=== PATIENT | male | born 1960 | race Two or more races ===

== ENCOUNTER 2020-11-09 05:17 | Inpatient (IN) | payer OTHER ==
[~2020-11-09] VITALS: Ht 182.9 cm; Wt 83.5 kg
[2020-11-09] VITALS (14 sets, daily range): BP systolic 115–134; BP diastolic 68–84
[~2020-11-09 05:17] MED LIST: ATORVASTATIN CA10 MG ORAL; LEXAPRO10 MG ORAL; PROTONIX40 MG ORAL; VITAMIN D325 MC1 PO; ceFAZolin sod 2 GM in NS 55 ML IVPB ONE
[2020-11-09] MEDS ORDERED: Midazolam 2mg/2ml Inj ONE (06:26)
[2020-11-09] MEDS ORDERED: fentaNYL 100 mcg/2 mL IV ONE (06:26)
[2020-11-09] MEDS ORDERED: Lidocaine 1% MPF 10mg/ml 5ml ONE (06:27)
[2020-11-09] MEDS ORDERED: Vancomycin 1gm vial IVPB ONE (06:37)
[2020-11-09] MEDS ORDERED: Thrombin 5000 units TOPIC ONE (06:38)
[2020-11-09] MEDS ORDERED: Rocuronium Bromide 50mg/5ml Inj IV ONE (06:38)
[2020-11-09] MEDS ORDERED: Ropivacaine 5mg/ml Vial 30ml INJ ONE (06:38)
[2020-11-09] MEDS ORDERED: Succinylcholine 20mg/ml 10ml vial ONE (06:38)
[2020-11-09] MEDS ORDERED: Gelfoam Size TOPIC ONE (06:38)
[2020-11-09] MEDS ORDERED: Bacitracin 50000 Units Vial ONE (06:39)
--- NOTE | 2020-11-09 06:50 | Anethesia Preoperative Eval ---
Anesthesia Pre-op PMH/ROS General Date of Evaluation: Nov 09, 2020 Time of Evaluation: 06:46 Anesthesiologist: Jimenez ASA Score: ASA 2 Mallampati Score Class I : Soft palate, uvula, fauces, pillars visible Class II: Soft palate, uvula, fauces visible Class III: Soft palate, base of uvula visible Class IV: Only hard plate visible Mallampati Classification: Class II Surgeon: Avinash Diagnosis: Lumbar radiculopathy Surgical Procedure: Lumbar laminotomy Anesthesia History: none Family History: no anesthesia problems Allergies: Coded Allergies: No Known Allergies (Unverified , 11/06/20) Medications: see eMAR Patient NPO?: Yes Past Medical History Cardiovascular: Reports: HTN - brderline; Denies: CAD, [place], valve dz, arrhythmia, other Pulmonary: Denies: asthma, COPD, STIVEN, other Gastrointestinal/Genitourinary: Reports: GERD, other - gastric ulcer; Denies: CRI, ESRD Neurologic/Psychiatric: Reports: depression/anxiety, other - chroniuc pain; Denies: dementia, CVA, TIA Endocrine: Denies: DM, hypothyroidism, steroids, other HEENT: Denies: cataract (L), cataract (R), glaucoma, TAZLINA (L), TAZLINA (R), other Hematology/Immune: Denies: anemia, DVT, bleeding disorder, other Musculoskeletal/Integumentary: Reports: OA; Denies: RA, DJD, DDD, edema, other PMH Narrative: as above PSxH Narrative: see H&P Anesthesia Pre-op Phys. Exam Physician Exam Last Vital Signs Date Time Temp Pulse Resp B/P (MAP) Pulse Ox O2 Delivery O2 Flow Rate FiO2 11/09/20 06:02 Room Air 11/09/20 05:49 98.7 75 18 129/83 (98) 98 Constitutional: NAD Neurologic: CN 2-12 intact Cardiovascular: RRR, no M/R/G Respiratory: CTA Gastrointestinal: S/NT/ND Airway Exam Mallampati Score: Class II MO: full Neck: flexible ROM: limited Teeth: missing Dentures: no upper, no lower Anesthesia Pre-op A/P Labs see chart Studies Pre-op Studies: EKG - SR Risk Assessment & Plan Assessment: ASA 2 Plan: GA with ETT, prone position neuromonitoring Status Change Before Surgery: No Pre-Antibiotics Drug: Ancef 2gr. Given Within 1 Hr of Incision: Yes Time Given: 07:32 Figueroa Gaona MD Nov 09, 2020 06:50
[2020-11-09] MEDS ORDERED: propofoL 1,000mg/100ml IV ONE ×2 (07:00→08:00)
--- NOTE | 2020-11-09 07:16 | Pre-Procedure Note/Attestation ---
Pre-Procedure Note/Attestation Complete Prior to Procedure Planned Procedure: left Procedure Narrative: Left Microdiscectomy Hemilaminotomy Foraminotomy Decompression at L45 and L5S1 Indications for Procedure Pre-Operative Diagnosis: herniation L45 L5s1 Attestation I attest that I discussed the nature of the procedure; its benefits; risks and complications; and alternatives (and the risks and benefits of such alternatives), prior to the procedure, with the patient (or the patient's legal representative phlebotomy services). I attest that, if there was a reasonable possibility of needing a blood transfusion, the patient (or the patient's legal representative phlebotomy services) was given the [facility] standardized written summary, pursuant to the Hemal Trish Blood Safety Act ([place] Health and Safety Code # 1645, as amended). I attest that I re-evaluated the patient just prior to the surgery and that there has been no change in the patient's H&P, except as documented below: Charles Da Silva MD Nov 09, 2020 07:16
--- NOTE | 2020-11-09 07:17 | Brief Operative Note ---
Immediate Post Operative Note Operative Note Chief Complaint: leg pain and back pains Pre-op Diagnosis: herniation L45 L5s1 Procedure: Left Microdiscectomy Hemilaminotomy Foraminotomy Decompression at L45 and L5S1 Post-op Diagnosis: same as pre-op Findings: consistent w/pre-op dx studies Surgeon: Avinash Computer Builder: Aleisha Anesthesiologist: MILEY Anesthesia: general Specimen: none Complications: none Condition: stable Fluids: ivf Estimated Blood Loss: minimal Drains: none Implant(s) used?: No Charles Da Silva MD Nov 09, 2020 07:17
[2020-11-09] MEDS ORDERED: HYDROcodone/Acetamin 7.5/325 tab ORAL PRN ×2 (07:30)
[2020-11-09] MEDS ORDERED: Morphine Sulfate 2mg/ml Inj(IV/IM USE ONLY) IV PRN (07:30)
[2020-11-09] MEDS ORDERED: HYDROmorphone 1mg/ml Carpuject IVP PRN (07:30)
[2020-11-09] MEDS ORDERED: Morphine Sulfate 4mg/ml Inj (IV USE ONLY) IV PRN (07:30)
[2020-11-09] MEDS ORDERED: Metoclopramide 10mg/2ml Inj IVP PRN (07:30)
[2020-11-09] MEDS ORDERED: Naloxone 0.4mg/ml Inj IVP PRN (07:30)
[2020-11-09] MEDS ORDERED: Chloraseptic Spray 20mL Bottle ORAL PRN (07:30)
[2020-11-09] MEDS ORDERED: HYDROcodone/Acetamin 5/325 tab ORAL PRN (07:30)
[2020-11-09] MEDS ORDERED: Milk of Magnesia 30ml Ud ORAL PRN (07:30)
[2020-11-09] MEDS ORDERED: NS Irrig 1000ml IRRIG ONE ×2 (07:32→08:04)
[2020-11-09] MEDS ORDERED: Sterile Water Irrig 1000ml IRRIG ONE (08:00)
[2020-11-09] MEDS ORDERED: NS Irrig 1000ml ONE (08:00)
[2020-11-09] MEDS ORDERED: LR 1000ml ONE (08:00)
[2020-11-09] MEDS ORDERED: Morphine Sulfate 10mg/ml Inj ONE (08:09)
[2020-11-09] MEDS ORDERED: Glycopyrrolate 0.2mg/ml 1ml Vial ONE (08:10)
[2020-11-09] MEDS ORDERED: Sodium Chloride 10ml vial INJ ONE ×2 (08:10→08:22)
[2020-11-09] MEDS ORDERED: Neostigmine 1mg/ml 10ml Inj ONE (08:10)
[2020-11-09] MEDS ORDERED: Acetaminophen (Non formulary) 100 ML IV ONE (08:15)
--- NOTE | 2020-11-09 09:21 | Immediate Post-Op Evaluation ---
Immediate Post-Op Evalulation Immediate Post-Op Evalulation Procedure: L4-L5 L5-S1 laminotomy with discectomy and decompression Date of Evaluation: Nov 09, 2020 Time of Evaluation: 09:20 IV Fluids: 1100 Blood Products: none Estimated Blood Loss: 100 Urinary Output: 200 Blood Pressure Systolic: 109 Blood Pressure Diastolic: 72 Pulse Rate: 86 Respiratory Rate: 22 O2 Sat by Pulse Oximetry: 99 Temperature (Fahrenheit): 97.6 Pain Score (1-10): 1 Nausea: No Vomiting: No Complications none Patient Status: reacts, patent, extubated, none Hydration Status: adequate Figueroa Gaona MD Nov 09, 2020 09:21
--- NOTE | 2020-11-09 09:51 | Diagnostic Imaging Report ---
XRAY L Spine 1V CLINICAL HISTORY: Back pain. COMPARISON: None FINDINGS: Fluoroscopy independent procedure performed for intraoperative localization. 3.9 seconds of fluoroscopy time utilized by the ordering physician. Total cumulative dose is 2.16 mGy and 0.36445 Gy.cm2. Total of 2 spot images are obtained . IMPRESSION: FLUOROSCOPY GUIDED PROCEDURE.
[2020-11-09] MEDS ORDERED: LR 1000ml 1,000 ML IVLG SCH (10:00)
[2020-11-09] MEDS ORDERED: Hydromorphone 0.5mg/0.5ml inj IVP PRN (10:00)
[2020-11-09] MEDS ORDERED: Ketorolac 30mg Inj IV PRN (10:00)
[2020-11-09] MEDS ORDERED: DiphenhydrAMINE 50mg/ml Inj IVP PRN (10:00)
--- NOTE | 2020-11-09 11:25 | NUR ---
Nurse notes Received patient from PACU via bed s/p L4-L5 L5-S1 laminotomy with discectomy and decompression, dressing clean dry and intact, IVF patent and infusing well, c/o mininmal pain , on RA, applied ice at the post op site, admission routine care rendered oriented to the Unit, plan of care was discussed verbalized understanding 4 P's in progress call light w/n reach will continue to monitor patient condition linda Morocho
[2020-11-09] MEDS: Morphine Sulfate 4mg/ml Inj (IV USE ONLY) IV PRN ×3 (12:17→23:49)
[2020-11-09] MEDS: NS w/KCl 20mEq 1000ml 1,000 ML IV SCH ×2 (12:47→23:24)
[2020-11-09] MEDS: ceFAZolin sod 1 GM in D5W 55 ML IV SCH ×2 (12:48→23:24)
--- NOTE | 2020-11-09 12:50 | 48 Hour Post Anesthesia Eval ---
Post Anesthesia Evaluation Procedure: L4-L5 L5-S1 laminotomy with discectomy and decompression Date of Evaluation: Nov 09, 2020 Time of Evaluation: 12:49 Blood Pressure Systolic: 124 0: 76 Pulse Rate: 78 Respiratory Rate: 20 Temperature (Fahrenheit): 97.6 O2 Sat by Pulse Oximetry: 98 Airway: patent Nausea: No Vomiting: No Pain Intensity: 3 Hydration Status: adequate Cardiopulmonary Status: stable Mental Status/LOC: patient returned to baseline Follow-up Care/Observations: n/a Post-Anesthesia Complications: none Follow-up care needed: ready to discharge Figueroa Gaona MD Nov 09, 2020 12:50
[2020-11-09] MEDS: Docusate 100mg cap ORAL SCH (17:24)
--- NOTE | 2020-11-09 19:33 | NUR ---
NURSE HAND-OFF: Important Events on Shift:[none] Patient Status: [improving] Diet: [regular diet] Pending Orders: [none] Pending Results/Labs:[none] Pending MD notification:[none] Latest Vital Signs: Temperature 97.7 , Pulse 71 , B/P 134 /78 , Respiratory Rate 18 , O2 SAT 97 , Nasal Cannula, O2 Flow Rate 3 . Vital Sign Comment: [stable] Latest Sage Fall Score: 20 Fall Risk: Low Risk Safety Measures: Call light , Bed Alarm , Side Rails Side Rails x1, Bed position Low and Locked. Fall Precautions: Report given to MS ELVIE RN].
--- NOTE | 2020-11-09 19:40 | NUR ---
NURSE NOTES: The patient is alert and oriented x4, is calm and responsive with her care and does not appear to be in any active distress at this time.He is basically bed bound with Resp even and unlabored and the is no evidence of SOB or acute distress at this time.The patient has a right hand 20g that is patent and asymptomatics.The bed in lowest level, call light within easy reach. will continue to monitor as indicated.
--- NOTE | 2020-11-09 20:44 | Operative Note - Dictated ---
DATE OF OPERATION: 11/09/2020 SURGEON: Charles Da Silva MD DATA SECURITY CONSULTANT: COLE Echavarria. ANESTHESIOLOGIST: Figueroa Gaona MD ANESTHESIA: General endotracheal anesthesia. PREOPERATIVE DIAGNOSES: 1. Intractable back pain. 2. Intractable leg pain. 3. Worsening radiculopathy. 4. Weakness. 5. Herniated nucleus pulposus, L5-S1 and L4-L5 herniation. 6. Neural foraminal stenosis, L5-S1 and L4-L5. POSTOPERATIVE DIAGNOSES: 1. Intractable back pain. 2. Intractable leg pain. 3. Worsening radiculopathy. 4. Weakness. 5. Herniated nucleus pulposus, L5-S1 and L4-L5 herniation. 6. Neural foraminal stenosis, L5-S1 and L4-L5. PROCEDURES PERFORMED: 1. Left-sided L5-S1 and L4-L5 microdiscectomy. 2. L5-S1 and L4-L5 hemilaminotomy, foraminotomy and medial facetectomy. 3. L5-S1 and L4-L5 neural foraminotomy through a transpedicular intraforaminal approach. 4. Use of intraoperative microscope. 5. Supervision and interpretation of intraoperative fluoroscopy. 6. Supervision and interpretation of somatosensory-evoked potential and free running EMG monitoring. EBL: Less than 100 mL. COMPLICATIONS: None. INDICATIONS FOR THE PROCEDURE: The patient presents for intractable back pain and radiculopathy. The patient tried and failed a prolonged course of conservative management, including but not limited to chiropractic therapy, physical therapy, nonsteroidal anti-inflammatory drugs, medication, ice packs as well as epidural injection. Despite these therapies, the patient still developed recalcitrant pain and elected for definitive management in the form of left-sided L5-S1 and L4-L5 microdiscectomy, L5-S1 and L4-L5 hemilaminotomy, foraminotomy and medial facetectomy, L5-S1 and L4-L5 neural foraminotomy through a transpedicular intraforaminal approach CONSENT: We had a long discussion with the patient regarding definitive surgical treatment options. The patient's MRI demonstrated herniated nucleus pulposus, L5-S1 and L4-L5 herniation, neural foraminal stenosis, L5-S1 and L4-L5, and as a result, I felt the patient would benefit from the discectomy as well as neural foraminotomy at this level. We had a long discussion with the patient regarding the risks, alternatives, and benefits of surgery. Our description of the risks included a discussion in person as well as a signed consent which detailed all pertinent risks and the procedure itself. Briefly, our discussion included but was not limited to infection, bleeding, pseudarthrosis, spinal cord injury, neurovascular injury, dural tear, CSF leak, neuropathy, paralysis, permanent weakness/drop foot, paresthesias blindness, palsy and weakness. The patient understood there may be a need for revision surgery or additional procedures. Approach related complications including dysphonia, dysphagia, blindness, permanent vocal cord and neural injury, hematoma, swallowing and breathing difficulty. Medical complications including liver, kidney, shock, and cardiopulmonary failure. Anesthesia complications including , swelling. Damage to the musculature, larynx (voice injury or loss),esophagus (throat), trachea, blood vessels and muscles (muscular sprain) and lungs (pneumothorax) during this surgical procedure. Injury to deeper structures may be temporary or permanent. The patient understood these and elected to proceed. A written and verbal consent was given. We discussed the pros and cons of all the alternatives. We discussed the uncertainties associated with the decision. Afterwards I assessed the patients understanding and explored their preferences. All questions were answered and no guarantees were given. Medical clearance was obtained prior to surgery INTRAOPERATIVE FINDINGS: L5-S1: There was a significant degree of scar tissue attributed to the prior surgery, which anatomy at L5-S1, possibly a hemilaminotomy, partial medial facetectomy, and foraminotomies at L5 and S1 were performed to allow exposure of the thecal sac and traversing neural elements, which appeared compressed. These were then probed and slowly retracted that gave rise to a tear in the posterior longitudinal ligament, which was approximately 10 degrees cephalad to caudad. Through the limbs and edges of the first tear, we noted there to be torn herniated nucleus pulposus, which was attributing to the neuroforaminal compression and thecal sac engorgement. This was mobilized with a Microsect curette and resected with a combination of pituitaries, arthroscopic and narrow abutting. The disc itself was felt to be soft and spongy. There was no calcification. There was no apparent dehydration of the disc. The disc was not calcified. At L4-L5: There was significant scarring, which necessitated dissection anatomy and after careful approach, a hemilaminotomy and foraminotomies were performed at L4 and L5 with visualization of the thecal sac, the exiting and traversing neural elements, which were carefully retracted, and we found there to be some apparent engorgement of the thecal sac and neural elements, which was attributed to a tear in the posterior longitudinal ligament, which was nearly vertical. This was probed with a Microsect curette and allowed us to freely mobilize the herniating nuclear tissue. This tissue itself was soft and spongy. It was not calcified, desiccated, or dehydrated. The tear to the PLL appeared to be fresh and did not appear therefore to be a degenerative process. With this, the both levels were resected with a combination of arthroscopic and narrow abutting pituitaries and afterwards the disc space was copiously irrigated to remove all free fragments. DESCRIPTION OF PROCEDURE: Under the benefit of general endotracheal anesthesia and with the assistance of the entire operative team, the patient was moved from the [facility] onto the operative table in the prone position on a Stefan frame. The head was secured and positioned appropriately. Bilateral arms were secured with Gel pads and foam and all bony prominences were padded. The bilateral lower extremity SCD and KETAN hose were placed for DVT prophylaxis. A surgical timeout was called which corroborated our planned procedure. Preoperative Antibiotics were administered within 30 minutes of the incision for prophylaxis. Decadron was given for preoperative steroids. Using lateral radiography, the operative levels were delineated. An incision was marked based on our interpretation of lateral radiography and afterwards the body was prepped and draped in the usual sterile manner. The family was notified that we were ready to commence surgery and were called in the waiting room hourly for updates An incision was based on our lateral fluoroscopic image to center the incision at the L5-S1 interspace. The wound was prepped and draped in the usual sterile fashion. Using a scalpel a midline incision was taken down through the skin and subcutaneous tissues until the overlying hemilamina of L5-S1 and L4-L5 were visualized. Next, using meticulous hemostasis, hemilamotomies were dissected and retractors were placed. Using a [employer] dental, we confirmed placement at the L5-S1 and L4-L5 interspace. We next turned our attention to our decompression. A standard hemilaminotomy foraminotomy medial facetectomy was performed at each level in standard fashion using a Midas-Reuben type AM8 drill bit, straight and angled curettage, and Kerrison 4 rongeurs until the lateral thecal sac margin and traversing nerve root was visualized. All remainders of the ligamentum flavum and lateral bony margins were resected in total with angled curettage and Kerrison 4 rongeurs until the lateral thecal sac margin and traversing nerve root was visualized and decompressed. We next turned our attention toward our L5-S1 and L4-L5 microdiscectomy on the left side. A Anderson 4 was used to gently mobilize the thecal sac medially and this was held retracted with a bayonetted nerve root retractor. It was at this point that we noted a large broad-based disc protrusion with encroachment dorsally on the thecal sac neural foraminal contents. A bayonet and nerve root retractor was then placed carefully to retract the thecal sac and a discectomy was performed using a combination of a long handled 15 blade scalpel, downgoing and straight pituitaries and downgoing curettage. Afterward the disc space was irrigated twice with 20 mL of antibiotic-impregnated saline. All loose and free-floating disc fragments were carefully resected with a narrow pituitary. Having been satisfied with our decompression after our discectomy of all neural elements, we next turned our attention to our neural foraminoplasty/foraminotomy. This was performed through a transpedicular intraforaminal approach using an access probe followed by a neuro check device, which confirmed ventral placement of our nerve root. Once we confirmed we were safe, we next turned our attention towards placement of our size 10 file under direct microscopic visualization and under lateral fluoroscopy. Using pre and post reciprocation imaging, we were able to visualize our direct decompression given the reciprocation allowed for re-creation of the neural foraminal arch at L5-S1 and L4-L5. Afterwards, hemostasis was obtained with 60 mL of antibiotic-impregnated saline followed by FloSeal and Gelfoam. After sponge and needle count were found to be correct, we next turned our attention to closure. Closure consisted of 1-0 Vicryl in standard interrupted fashion. Zosyn was placed deep to the fascia and superficial to the fascia for antibiotic prophylaxis. Skin closure was performed with 2-0 Vicryl in interrupted fashion followed by a running Monocryl for the skin. Final dressings consisted of Dermabond for the superficial skin, Telfa and Tegaderm. The patient tolerated the procedure well. The patient was extubated after the conclusion of surgery without incident. We discussed the findings of the surgery with the family upon completion of the case. At this point the patient will be transferred to the spine floor for further observation. Charlse Da Silva M.D. DR: MOHAN JOB#: [id number] CC:
[2020-11-10] VITALS: BP 103/65
[2020-11-10 04:00] VITALS: BP 111/67
--- NOTE | 2020-11-10 07:09 | NUR ---
NURSE HAND-OFF: Important Events on Shift:Alert and cooperative with his care, PT on the case Patient Status: Diet: Pending Orders: Pending Results/Labs: Pending MD notification: Latest Vital Signs: Temperature 99.2 , Pulse 76 , B/P 111 /67 , Respiratory Rate 18 , O2 SAT 95 , Nasal Cannula, O2 Flow Rate 3 . Vital Sign Comment: Latest Sage Fall Score: 20 Fall Risk: Low Risk Safety Measures: Call light Within Reach, Bed Alarm Zone 1, Side Rails Side Rails x1, Bed position Low and Locked. Fall Precautions: Yellow Socks Yellow Gown Patient Fall Education Report given to .
--- NOTE | 2020-11-10 07:25 | NUR ---
NURSE NOTES: Received patient resting comfortably in bed,patient awake, alert, oriented x4 no sign of distress, C/o minimal pain, IVF patent and infusing well, on fall nd aspiration precaution, Bed in lowest position, bed is locked, bed alarm on.kept clean dry and comfortable Side rails up X2. Call light within reach and patient able to make needs known. linda greco
[2020-11-10] MEDS: ceFAZolin sod 1 GM in D5W 55 ML IV SCH (07:37)
[2020-11-10 08:00] VITALS: BP 136/78
[2020-11-10] MEDS: Docusate 100mg cap ORAL SCH (08:06)
[2020-11-10] MEDS: NS w/KCl 20mEq 1000ml 1,000 ML IV SCH (08:09)
--- NOTE | 2020-11-10 10:51 | NUR ---
PT Note PT sukh completed. Patient was instructed on proper log rolling and proper body mechanics and HEP. Patient was able to demonstrate understanding of instructions. No further PT services needed at this time. Addendum: 11/10/20 at 1051 by TWIN HUDSON PT Amended: Links added.
--- NOTE | 2020-11-10 11:42 | NUR ---
CASE MANAGEMENT:REVIEW 11/09/20 SI: LEG AND BACK PAIN 98.7 75 18 129/83 98% ON RA IS: TO SURGERY FOR: LT MICRODISCECTOMY HEMILAMINOTOMY FORAMINOTOMY DECOMPRESSION IV ANCEF Q8HRS IV DECADRON Q6HRS IVF@100/HR IV MORPHINE Q3HRS PRN : TO MED/SURG 11/10/20 DISCHARGE HOME
[2020-11-10 12:00] VITALS: BP 137/82
--- NOTE | 2020-11-10 12:18 | NUR ---
nurse notes patient made aware regarding plan of care, discharge instruction packet handed to patient, discharge teaching done all questions answered verbalized understanding, patient refused to take the norco prescription stated my Dr Just called me and he will changed my medicine , i dont want norco gave me head ache linda greco
--- NOTE | 2020-11-10 13:39 | NUR ---
nurse notes discharged to home in stable condition with all belongings taken accompanied by Len (special education secretary)discharged via private car linda greco
--- NOTE | 2020-11-12 12:00 | Discharge Summary ---
Discharge Summary Discharge Summary _ Date of admission: 11/09/2020 Date of discharge: 11/10/[address] Da Silva History of Present Illness and Brief Hospital Course Mr. Dooley is a 60-year-old male who presented to [facility] for a scheduled surgery. Patient had intractable back pain, and leg pain with worsening radiculopathy. Patient was diagnosed with herniated nucleus pulposus and neuroforaminal stenosis at L5-S1 and L4-L5. Patient tried and failed a prolonged course of conservative management. Patient requested more definitive management. Patient underwent left-sided L5-S1 and L4-L5 microdiscectomy, L5-S1 and L4-L5 hemilaminotomy, foraminotomy and medial facetectomy, and L5-S1 and L4- L5 neural foraminotomy through a transpedicular infra foraminal approach. Patient tolerated the procedure well and was transferred to the spine floor for further observation. The details of the surgery can be found in the operative note. Patient was closely monitored after the surgery. Patient was found to be medically stable and was discharged home on 11/10/2020. Consultants: None Discharge Condition Stable Discharge Activity Ambulate as tolerated Discharge Diet Regular Final diagnoses Intractable back pain. Intractable leg pain. Worsening radiculopathy. Weakness. Herniated nucleus pulposus, L5-S1 and L4-L5 herniation. Neural foraminal stenosis, L5-S1 and L4-L5. s/p left-sided L5-S1 and L4-L5 microdiscectomy. s/p L5-S1 and L4-L5 hemilaminotomy, foraminotomy and medial facetectomy. s/p L5-S1 and L4-L5 neural foraminotomy through a transpedicular intraforaminal approach. I have been assigned to dictate discharge summary for this account. I was not involved in the patient's management Roderick Aquino Nov 12, 2020 11:59
== END 2020-11-10 13:50 | disposition home or self-care (01) | DRG 520 ==
LOC: SDSOVERFLO 05:17 → 4E 11:48
DX: M51.16 Intervertebral disc disorders with radiculopathy, lumbar region (principal); M51.17 Intervertebral disc disorders with radiculopathy, lumbosacral region; M48.061 Spinal stenosis, lumbar region without neurogenic claudication; M48.07 Spinal stenosis, lumbosacral region; V43.52XS Car driver injured in collision with other type car in traffic accident, sequela; E78.00 Pure hypercholesterolemia, unspecified
CPT/HCPCS: 36415; 72020; 76000; 86850; 86900; 86901; 87081; 94003; 94150; J2250; J2405; J2710